=== PATIENT | male | born 1960 | race Two or more races ===

== ENCOUNTER → 2018-11-14 | Day surgery (SDC) | payer OTHER ==
[~2018-11-14] MED LIST: ALBUTEROL SULFATE 2.5 MG/3 ML NEBU. NEB PRN; ASPI325T8 PO; IPRATRPIUM/ALBUTEROL 0.5/2.5MG 3 ML NEBU. NEB PRN; IV RINGERS SOLUTION,LACTATED 1,000 ML IV SCH; LEVO125T5 PO; LIDOCAINE 2% PF Vial for OR 5 ML VIAL. ONE; LOSA50TA86 PO; ONDANSETRON PF 4 MG/2 ML VIAL. IV ONE; ONDANSETRON PF 4 MG/2 ML VIAL. IV PRN; PROPOFOL 10,000 MCG/ML (20ML) VIAL IV ONE; PROPOFOL 40 ML IV ONE; RACEPINEPHRINE 2.25% 0.5 ML NEBU. NEB PRN; diphenhydrAMINE 50 MG/ML VIAL IV PRN
[2018-11-14 12:13] VITALS: BP 154/89
--- NOTE | 2018-11-18 16:07 | PATHOLOGY ---
[facility] Accession Number: [id number] . 01 Material submitted: . DESCENDING COLON POLYPS . 01 Clinical history: . Screening colonoscopy . 02 Diagnosis: Colon biopsy, descending colon polyp: - Hyperplastic polyp. (JPM:mela; 11/18/2018) QMS/11/18/2018 . 02 Comment: There are no adenomatous changes or evidence of malignancy. (JPM:mela; 11/18/2018) . 02 Electronically signed: . Saeed Bonilla MD, Pathologist NPI- [id number] . 01 Gross description: . The specimen is received in formalin, labeled "Luis Wang, descending colon polyp" and consists of 2 fragments of sam-valentine tissue measuring 0.2 x 0.1 cm and 0.3 x 0.2 x 0.2 cm. They are entirely submitted in A1. (SDY; 11/17/2018) SYU/SYU . 02 Microscopic: . . . 02 Pathologist provided ICD-10: K63.5 . 02 CPT . 789692 Specimen Comment: A courtesy copy of this report has been sent to Specimen Comment: [phone], . Specimen Comment: Report sent to / DR BOND Specimen Comment: A duplicate report has been generated due to demographic updates. Performed at: [address] [facility] [address], [place] [id number] MD James Mireles MD Phone: [phone] Performed at: 02 [facility] [address] [place], [place] [id number] MD Saeed Bonilla MD Phone: [phone]
== END | disposition home or self-care (01) ==
LOC: SURG 09:00
PROVIDERS: ATTEND Internal Medicine Gastroenterology
DX: Z12.11 Encounter for screening for malignant neoplasm of colon (principal); K63.5 Polyp of colon; I10 Essential (primary) hypertension; E03.9 Hypothyroidism, unspecified; E66.9 Obesity, unspecified; Z88.0 Allergy status to penicillin; Z88.8 Allergy status to other drugs, medicaments and biological substances; Z79.82 Long term (current) use of aspirin; Z79.899 Other long term (current) drug therapy; Z98.890 Other specified postprocedural states
CPT/HCPCS: 45380; J2704; J3010; 88305; J2001